=== PATIENT | male | born 1975 | race African-American/Black ===

== ENCOUNTER 2016-12-08 12:59 | Emergency (ER) | payer SELFPAY ==
[~2016-12-08] VITALS: Ht 177.8 cm; Wt 74.8 kg
[2016-12-08] MEDS ORDERED: SODIUM CHLORIDE 0.9% 1,000 ML IVB ONE (13:57)
[2016-12-08 14:25] LABS: Basophils # (auto) 0 uL; Basophils % (auto) 0.2 % (0.0-2.0); CONDITION Y; Eosinophils # (auto) 0.1 uL; Eosinophils % (auto) 0.9 % (0.0-7.0); Hematocrit 44.8 % (41.0-53.0); Hemoglobin 14.9 g/dL (13.5-17.5); Lymphocytes # (auto) 0.7 uL; Mean Corpuscular Hgb Conc. 33.2 g/dL (32.0-36.0); Mean Corpuscular Volume 90.6 fL (80.0-100.0); Mean Platelet Volume 8.1 fL (7.4-10.4); Monocytes # (auto) 0.5 uL; Monocytes % (auto) 3.7 % (0.0-12.0); Neutrophils # (auto) 11.7 uL; Neutrophils % (auto) 90.2 % (37.0-80.0); Platelet Count (auto) 261 10^3/uL (140-450); Red Cell Distribution Width 13.4 % (11.6-16.0)
[2016-12-08 14:50] LABS: Albumin 3.7 g/dL (3.4-5.0); Alkaline Phosphatase 54 U/L (45-117); Anion Gap 8 (5-15); Aspartate Aminotransferase 15 U/L (15-37); BUN/Creatinine Ratio 10.6; Bilirubin, Total 0.6 mg/dL (0.2-1.0); Blood Urea Nitrogen 10 mg/dL (7-18); Carbon Dioxide 27 mmol/L (21-32); Chloride 106 mmol/L (98-107); GFR African American 114 mL/min; GFR Non-African American 94 mL/min; Glucose 107 mg/dL (74-106); Magnesium 2.4 mg/dL (1.6-2.6); Potassium 3.4 mmol/L (3.5-5.1); Sodium 141 mmol/L (136-145); Total Protein 7.6 g/dL (6.4-8.2)
[2016-12-08] MEDS ORDERED: POTASSIUM CHL 10% (20 MEQ/15ML) ORAL SOLN PO ONE (17:30)
[2016-12-08 18:32] LABS: Urine Bilirubin Negative (Negative); Urine Blood Negative /uL (Negative); Urine Color Yellow (Yellow); Urine Glucose Normal (Normal); Urine Ketone Negative (Negative); Urine Mucus FEW (None Seen); Urine Nitrite Negative (Negative); Urine RBC 1 /hpf (0 - 3); Urine Sperm PRESENT /hpf (None Seen)
[2016-12-08 19:10] VITALS: BP 134/99
== END 2016-12-08 20:15 | disposition home or self-care (01) ==
LOC: ER 12:59 → EDBD 12:59 → ER 20:15
DX: R41.82 Altered mental status, unspecified (principal); E87.6 Hypokalemia
CPT/HCPCS: 36415; 70450; 71010; 80053; 80307; 80320; 81001; 83735; 84443; 85025; 94761; 96360; 99285; J7030

== ENCOUNTER 2017-08-17 06:10 | Emergency (ER) | payer MEDICAID ==
[~2017-08-17] VITALS: Ht 177.8 cm; Wt 77.1 kg
[2017-08-17 07:11] VITALS: BP 152/94
[2017-08-17] MEDS ORDERED: LIDOCAINE 1% (LOCAL ANESTH.) PF 5ml SDV IJ ONE (07:30)
[2017-08-17] MEDS ORDERED: TETANUS-DIPTH-ACEL PERTUSSIS 0.5ML SYRG IM ONE (08:15)
[2017-08-17] MEDS ORDERED: KETOROLAC TROMETH 60MG/2ML VIAL IM ONE (08:15)
== END 2017-08-17 08:53 | disposition home or self-care (01) ==
LOC: ER 06:11
DX: S01.312A Laceration without foreign body of left ear, initial encounter (principal); F12.10 Cannabis abuse, uncomplicated; F17.210 Nicotine dependence, cigarettes, uncomplicated; F14.10 Cocaine abuse, uncomplicated; Y08.89XA Assault by other specified means, initial encounter; Y93.89 Activity, other specified; Y99.8 Other external cause status; Y92.89 Other specified places as the place of occurrence of the external cause
CPT/HCPCS: 12015; 90471; 90715; 96372; 99284; J1885; 12054

== ENCOUNTER 2017-09-18 06:56 | Emergency (ER) | payer MEDICAID ==
[~2017-09-18] VITALS: Ht 175.3 cm; Wt 78.5 kg
[2017-09-18 07:53] VITALS: BP 151/101
== END 2017-09-18 08:36 | disposition home or self-care (01) ==
LOC: ER 06:59
DX: S01.312D Laceration without foreign body of left ear, subsequent encounter (principal); F17.210 Nicotine dependence, cigarettes, uncomplicated; X58.XXXD Exposure to other specified factors, subsequent encounter

== ENCOUNTER 2019-09-23 20:28 | Emergency (ER) | payer SELFPAY ==
[~2019-09-23] VITALS: Ht 175.3 cm; Wt 82.1 kg
[2019-09-23 20:29] VITALS: BP 134/101
[2019-09-24] MEDS ORDERED: TETANUS-DIPTH-ACEL PERTUSSIS 0.5ML SYR Tdap IM ONE (01:00)
== END 2019-09-24 01:38 | disposition home or self-care (01) ==
LOC: ER 20:31
DX: S71.111A Laceration without foreign body, right thigh, initial encounter (principal); F17.210 Nicotine dependence, cigarettes, uncomplicated; Y04.2XXA Assault by strike against or bumped into by another person, initial encounter; Y93.89 Activity, other specified; Y92.89 Other specified places as the place of occurrence of the external cause; Y99.8 Other external cause status
CPT/HCPCS: 12032; 90471; 90715

== ENCOUNTER 2019-10-31 09:13 | Emergency (ER) | payer SELFPAY ==
[~2019-10-31] VITALS: Ht 175.3 cm; Wt 83.0 kg
[2019-10-31 09:25] VITALS: BP 162/100
[2019-10-31] MEDS ORDERED: KETOROLAC TROMETH 30 MG/ML 1ML VIAL IV ONE (11:00)
[2019-10-31] MEDS ORDERED: CLINDAMYCIN 600MG IV 50 ML IV ONE (11:00)
[2019-10-31] MEDS ORDERED: cefTRIAXone 1GM/50ML D5W 50 ML IV ONE (11:00)
[2019-10-31 11:14] LABS: Basophils # (auto) 0 10 ^3/uL (0-0.2); Basophils % (auto) 0.4 % (0.0-2.0); Eosinophils # (auto) 0.2 10 ^3/uL (0-0.8); Eosinophils % (auto) 2.1 % (0.0-7.0); Hematocrit 44.1 % (41.0-53.0); Hemoglobin 14.3 g/dL (13.5-17.5); Lymphocytes # (auto) 1.3 10 ^3/uL (0.4-5.4); Lymphocytes % (auto) 17.8 % (10.0-50.0); Mean Corpuscular Hgb Conc. 32.4 g/dL (32.0-36.0); Mean Corpuscular Volume 89.6 fL (80.0-100.0); Monocytes # (auto) 0.5 10 ^3/uL (0-1.3); Monocytes % (auto) 6.6 % (0.0-12.0); Neutrophils # (auto) 5.4 10 ^3/uL (1.6-8.6); Neutrophils % (auto) 73.1 % (37.0-80.0); Nucleated Red Blood Cells % 0.2 %; Platelet Count (auto) 193 10^3/uL (140-450); Red Blood Cells 4.92 10^6/uL (4.5-5.90); Red Cell Distribution Width 14.4 % (11.8-14.3); White Blood Cell 7.3 10^3/uL (4.4-10.8)
[2019-10-31 11:37] LABS: Calcium 9.1 mg/dL (8.5-10.1); Potassium 3.3 mmol/L (3.5-5.1)
[2019-10-31 11:38] LABS: BUN/Creatinine Ratio 8.6
== END 2019-10-31 12:22 | disposition home or self-care (01) ==
LOC: ER 09:13
DX: S70.11XA Contusion of right thigh, initial encounter (principal); L03.115 Cellulitis of right lower limb; F17.210 Nicotine dependence, cigarettes, uncomplicated; F12.10 Cannabis abuse, uncomplicated; F14.90 Cocaine use, unspecified, uncomplicated; X58.XXXA Exposure to other specified factors, initial encounter; Y93.89 Activity, other specified; Y92.89 Other specified places as the place of occurrence of the external cause; Y99.8 Other external cause status
CPT/HCPCS: 36415; 80048; 85025; 87040; 93971; 96365; 96368; 96375; 99284; J0696; J1885; J3490

== ENCOUNTER 2022-06-14 05:42 | Emergency (ER) | payer MEDICAID ==
[~2022-06-14] VITALS: Ht 175.3 cm; Wt 84.9 kg
[2022-06-14 07:43] LABS: Basophils # (auto) 0 10 ^3/uL (0-0.2); Basophils % (auto) 0.7 % (0.0-2.0); Eosinophils # (auto) 0.3 10 ^3/uL (0-0.8); Eosinophils % (auto) 4.4 % (0.0-7.0); Hematocrit 41.6 % (41.0-53.0); Hemoglobin 14.3 g/dL (13.5-17.5); Lymphocytes # (auto) 1.5 10 ^3/uL (0.4-5.4); Lymphocytes % (auto) 23.6 % (10.0-50.0); Mean Corpuscular Hemoglobin 30.4 pg (28.0-32.0); Mean Corpuscular Hgb Conc. 34.4 g/dL (32.0-36.0); Mean Corpuscular Volume 88.5 fL (80.0-100.0); Monocytes # (auto) 0.3 10 ^3/uL (0-1.3); Neutrophils # (auto) 4.3 10 ^3/uL (1.6-8.6); Neutrophils % (auto) 66.3 % (37.0-80.0); Nucleated Red Blood Cells % 0.1 %; Red Cell Distribution Width 13.7 % (11.8-14.3); White Blood Cell 6.5 10^3/uL (4.4-10.8)
[2022-06-14 07:53] LABS: Urine Bacteria NONE SEEN /hpf (None Seen); Urine Blood Negative /uL (Negative); Urine Specific Gravity 1.023 (1.001-1.035); Urine WBC <1 /hpf (0 - 3)
[2022-06-14 07:55] LABS: INR 0.96 (0.9-1.15)
[2022-06-14 08:00] LABS: BUN/Creatinine Ratio 8.2; Calcium 8.9 mg/dL (8.5-10.1); Potassium 3.5 mmol/L (3.5-5.1)
[2022-06-14 08:17] LABS: Alcohol, Urine < 3.0 mg/dL (0-10)
[2022-06-14 08:27] LABS: Amphetamine Screen, Urine POSITIVE (NEGATIVE); Barbiturate Scree,Urine NEGATIVE (NEGATIVE); Benzodiazephine Screen, Urine NEGATIVE (NEGATIVE); Cannabinoid Screen, Urine POSITIVE (NEGATIVE); Cocaine Screen, Urine POSITIVE (NEGATIVE); Opiate Scree,Urine NEGATIVE (NEGATIVE); Phencyclidine Screen, Urine NEGATIVE (NEGATIVE)
[2022-06-14] MEDS ORDERED: CEPH-510 PO (09:15)
[2022-06-14] MEDS ORDERED: INDO50SU RE (09:15)
[2022-06-14] MEDS ORDERED: KETOROLAC TROMETH 60MG/2ML VIAL IM ONE (09:15)
[2022-06-14 09:24] VITALS: BP 146/99
== END 2022-06-14 09:28 | disposition home or self-care (01) ==
LOC: ER 05:42
DX: M79.661 Pain in right lower leg (principal); F19.90 Other psychoactive substance use, unspecified, uncomplicated; F12.10 Cannabis abuse, uncomplicated; F14.10 Cocaine abuse, uncomplicated; F17.210 Nicotine dependence, cigarettes, uncomplicated; Z79.2 Long term (current) use of antibiotics
CPT/HCPCS: 36415; 80048; 80307; 81001; 83605; 83880; 85025; 85610; 93971; 96372; 99284; J1885

== ENCOUNTER 2022-07-03 01:22 | Emergency (ER) | payer MEDICAID ==
[~2022-07-03] VITALS: Ht 177.8 cm; Wt 83.6 kg
[~2022-07-03 01:22] MED LIST: CEPH-510 PO; INDO50SU RE
[2022-07-03 02:04] VITALS: BP 159/110
== END 2022-07-03 03:21 | disposition home or self-care (01) ==
LOC: ER 01:22
DX: M79.89 Other specified soft tissue disorders (principal); F19.10 Other psychoactive substance abuse, uncomplicated; F17.210 Nicotine dependence, cigarettes, uncomplicated; F12.90 Cannabis use, unspecified, uncomplicated; F15.90 Other stimulant use, unspecified, uncomplicated